=== PATIENT | male | born 1980 | race Caucasian/White ===

== ENCOUNTER 2016-09-16 18:10 | Emergency (ER) | payer OTHER ==
[~2016-09-16] VITALS: Ht 170.2 cm; Wt 79.4 kg
[2016-09-16 18:14] VITALS: BP 133/87
--- NOTE | 2016-09-16 19:20 | NUR ---
PT IS 36/M BIB SELF TO ED WITH C/O RIGHT LOWER QUADRANT PAIN RADIATING FROM RIGHT FLANK ---ALSO SUPRAPUBIC "FULLNESS" FREQUENCY, URGENCY X 1 WK,DENIES INJURY, DENIES PENILE DRAINAGE PT STATES MED HX KIDNEY STONE, DENIES N/V/D; SKIN IS PINK/WARM/DRY; AAOX4 WITH EVEN AND STEADY GAIT; LUNGS CLEAR BL; HR EVEN AND REGULAR; PT DENIES ANY FEVER, CP, SOB, OR COUGH AT THIS TIME; PATIENT STATES PAIN OF 6/10 AT THIS TIME; VSS; PATIENT POSITIONED FOR COMFORT; HOB ELEVATED; BEDRAILS UP X2; BED DOWN. ER MD MADE AWARE OF PT STATUS.
--- NOTE | 2016-09-16 19:55 | NUR ---
Patient being evaluated by physician at bedside.
[2016-09-16] MEDS ORDERED: IBUPROFEN 800 MG TAB PO ONE (20:05)
--- NOTE | 2016-09-16 21:09 | NUR ---
PT RESTING IN BED. NO SOB NOTED AT BEDSIDE. WILL CONTINUE TO MONITOR.
[2016-09-16 22:40] VITALS: BP 124/79
== END 2016-09-16 22:40 | disposition home or self-care (01) ==
LOC: MED 18:10
DX: N28.1 Cyst of kidney, acquired (principal); I88.0 Nonspecific mesenteric lymphadenitis; Z87.442 Personal history of urinary calculi

== ENCOUNTER 2018-06-15 18:14 | Emergency (ER) | payer OTHER ==
[~2018-06-15] VITALS: Ht 160 cm; Wt 78.5 kg
[2018-06-15 18:47] VITALS: BP 124/78
--- NOTE | 2018-06-15 18:50 | NUR ---
AFTER PROVIDING URINE SAMPLE PT AMBULATES BACK TO THE LOBBY
--- NOTE | 2018-06-15 20:35 | NUR ---
PT TO ED WITH C/O LOWER ABDOMINAL PAIN RADIATING TO BACK X 1YR. PER PT "WE JUST SWITCHED DOCTORS AND THIS HAS BEEN GOING ON FOR A YEAR AND WE NEED TO GET AN ULTRASOUND TO SEE WHATS GOING ON" PT DENIES N/V/D. DENIES INJURY. PT PLACED INTO BED, PENDING MD AVILA.
[2018-06-15 21:32] VITALS: BP 124/78
--- NOTE | 2018-06-15 21:35 | NUR ---
Patient discharged with v/s stable. Written and verbal after care instructions given and explained. Patient verbalized understanding. Ambulatory with steady gait. All questions addressed prior to discharge. Advised to follow up with PMD.
== END 2018-06-15 21:32 | disposition home or self-care (01) ==
LOC: MED 18:14
DX: R10.2 Pelvic and perineal pain (principal)
CPT/HCPCS: 76856; 81002; 99284; Q0092